=== PATIENT | male | born 1980 | race Caucasian/White ===

== ENCOUNTER 2017-01-08 02:20 | Emergency (ER) | payer OTHER ==
[~2017-01-08] VITALS: Ht 185.4 cm; Wt 144.7 kg
[~2017-01-08 02:20] MED LIST: MELO15TA4 PO; SERT-234 PO
[2017-01-08 02:24] VITALS: TEMP 36.8; Ht 185.4 cm; Wt 144.7 kg
[2017-01-08] MEDS ORDERED: SUMA100T16 PO (02:52)
[2017-01-08] MEDS ORDERED: NAPR-1169 PO (02:52)
[2017-01-08] MEDS ORDERED: RANI150T3 PO (02:52)
[2017-01-08 03:03] LABS: BASO % 0.4 %; BASO ABS # 0.06 K/uL (0-0.2); COMPLETE YES; EOS % 1.5 %; IG% 0.5 %; LYMPH % 32.2 %; LYMPH ABS # 4.41 K/uL (1.2-3.4); MEAN CELL VOLUME 90.3 fL (80-100); MEAN CORPUSCULAR HEMOGLOBIN 30.5 pg (25-34); MEAN CORPUSCULAR HGB CONC 33.7 g/dl (32-36); MEAN PLATELET VOLUME 9.8 fL (7.4-10.4); MONO % 5.7 %; NEUT % 59.7 %; PLATELET COUNT 271 K/uL (130-400); RED BLOOD COUNT 4.76 M/uL (4.7-6.1); WHITE BLOOD COUNT 13.69 K/uL (4.8-10.8)
[2017-01-08 03:14] LABS: POINT OF CARE TROPONIN I < 0.030 ng/ml (0-0.045)
[2017-01-08 03:20] LABS: ALT/SGPT 64 U/L (12-78); AST/SGOT 39 U/L (15-37); BLOOD UREA NITROGEN 19 mg/dl (7-18); BUN/CREATININE RATIO 19.7 (10-20); CARBON DIOXIDE 28 mmol/L (21-32); CHLORIDE 106 mmol/L (98-107); CREATININE 0.96 mg/dl (0.60-1.40); GLUCOSE 102 mg/dl (70-99); POTASSIUM 3.7 mmol/L (3.5-5.1); SODIUM 140 mmol/L (136-145)
[2017-01-08 03:31] LABS: ALKALINE PHOSPHATASE 138 U/L (45-117)
--- NOTE | 2017-01-08 05:06 | EMERGENCY ROOM VISIT NOTE ---
History First contact with patient: 02:27 Chief Complaint: NECK PAIN Stated Complaint: NECK AND ARM PAIN-LEFT ARM,CHEST PAIN History of Present Illness The patient is a 36 year old male who presents to the Emergency Room with complaints of a few episodes of brief chest pain for the past 2 days that last 5 -20 seconds in duration. Patient states the pain will start midsternal go to his jaw. He is occasionally short of breath. He has had increased leg swelling. He is a trolley coach driver. There is a family history of heart disease with his mother having heart disease in her 40s. He has an echo yearly as there is a family history of heart tumors. Last ears echo was normal per patient. He follows with Dr. Whittaker. No stress test. Patient used to smoke and now vaporize's. Occasional alcohol use. He does have high cholesterol. No diabetes or hypertension. He does not exercise. He is a 25 pound weight gain recently. No exertional chest pain. Patient denies abdominal pain, diaphoresis, vomiting, diarrhea, back pain, history of blood clots. There is a family history of blood clots. Review of Systems See HPI for pertinent positives & negatives. A total of 10 systems reviewed and were otherwise negative. Past Medical/Surgical History Medical Problems: (1) Back pain, chronic (2) Diaphragmatic Hernia (3) Diverticulosis Colon (W/O Ment Of Hemorrhage) (4) Esophageal Reflux (5) Tobacco Use Disorder Surgical Problems: (1) No significant past surgical history Family History Diabetes mellitus FHx: heart disease Social History Smoking Status: Former Smoker Smokeless Tobacco Use: Yes Alcohol Use: none Marital Status: Housing Status: lives with family Occupation Status: employed Current/Historical Medications Scheduled Meloxicam (Mobic), 15 MG PO DAILY Ranitidine Hcl (Zantac), 150 MG PO BID Sertraline (Zoloft), 100 MG PO DAILY Scheduled PRN Naproxen (Naprosyn), 500 MG PO BID PRN for Pain Sumatriptan Succinate (Imitrex), 100 MG PO UD PRN for Migraine Physical Exam Vital Signs Date Time Temp Pulse Resp B/P (MAP) Pulse Ox O2 Delivery O2 Flow Rate FiO2 01/08/17 04:03 67 21 135/76 96 Room Air 01/08/17 02:38 70 01/08/17 02:24 36.8 80 16 162/100 97 Room Air Physical Exam VITALS: Vitals are noted on the nurse's note and reviewed by myself. Vital signs hypertensive GENERAL: Pleasant male morbidly obese, in no acute distress, nondiaphoretic, well-developed well-nourished. SKIN: The skin was without rashes, erythema, edema, or bruising. There is no tenting of the skin. Capillary reflex less than 2 seconds. HEAD: Normocephalic atraumatic. EARS: External auditory canals clear, tympanic membranes pearly morocho without erythema or effusion bilaterally. EYES: Pupils equal round and reactive to light and accommodation. Conjunctivae without injection, sclerae without icterus. Extraocular movements intact. NOSE: Patent, turbinates without inflammation or discharge. MOUTH: Mucous membranes moist. Pharynx without erythema or exudate. Uvula midline. Airway patent. Tongue does not deviate. NECK: Supple without nuchal rigidity. No lymphadenopathy. No thyromegaly. Cervical spine is nontender. No JVD. HEART: Regular rate and rhythm without murmurs gallops or rubs. LUNGS: Clear to auscultation bilaterally without wheezes, rales or rhonchi. No dullness to percussion. No retractions or accessory muscle use. ABDOMEN: Positive bowel sounds x 4. Normal tympanic percussion. Soft, protuberant, obese, nontender, without masses or organomegaly. Medina sign negative. No guarding or rebound tenderness. MUSCULOSKELETAL: No muscle atrophy, erythema, noted. + 1 Pitting edema up to the mid tib-fib bilaterally NEURO: Patient was alert and oriented to person place and time. Normal sensation to light and sharp touch. No focal neurological deficits. Medical Decision & Procedures Laboratory Results 01/08/17 02:40 Red Blood Count 4.76, Mean Corpuscular Volume 90.3, Mean Corpuscular Hemoglobin 30.5, Mean Corpuscular Hemoglobin Concent 33.7, Mean Platelet Volume 9.8, Neutrophils (%) (Auto) 59.7, Lymphocytes (%) (Auto) 32.2, Monocytes (%) (Auto) 5.7, Eosinophils (%) (Auto) 1.5, Basophils (%) (Auto) 0.4, Neutrophils # (Auto) 8.17, Lymphocytes # (Auto) 4.41, Monocytes # (Auto) 0.78, Eosinophils # (Auto) 0.20, Basophils # (Auto) 0.06 01/08/17 02:40 Test 01/08/17 02:40 01/08/17 02:54 01/08/17 04:47 White Blood Count 13.69 K/uL (4.8-10.8) Red Blood Count 4.76 M/uL (4.7-6.1) Hemoglobin 14.5 g/dL (14.0-18.0) Hematocrit 43.0 % (42-52) Mean Corpuscular Volume 90.3 fL (80-100) Mean Corpuscular Hemoglobin 30.5 pg (25-34) Mean Corpuscular Hemoglobin Concent 33.7 g/dl (32-36) Platelet Count 271 K/uL (130-400) Mean Platelet Volume 9.8 fL (7.4-10.4) Neutrophils (%) (Auto) 59.7 % Lymphocytes (%) (Auto) 32.2 % Monocytes (%) (Auto) 5.7 % Eosinophils (%) (Auto) 1.5 % Basophils (%) (Auto) 0.4 % Neutrophils # (Auto) 8.17 K/uL (1.4-6.5) Lymphocytes # (Auto) 4.41 K/uL (1.2-3.4) Monocytes # (Auto) 0.78 K/uL (0.11-0.59) Eosinophils # (Auto) 0.20 K/uL (0-0.5) Basophils # (Auto) 0.06 K/uL (0-0.2) RDW Standard Deviation 43.4 fL (36.4-46.3) RDW Coefficient of Variation 13.2 % (11.5-14.5) Immature Granulocyte % (Auto) 0.5 % Immature Granulocyte # (Auto) 0.07 K/uL (0.00-0.02) Anion Gap 6.0 mmol/L (3-11) Est Creatinine Clear Calc Drug Dose 160.7 ml/min Estimated GFR () 118.2 Estimated GFR (Non- 102.0 BUN/Creatinine Ratio 19.7 (10-20) Calcium Level 9.0 mg/dl (8.5-10.1) Magnesium Level 2.0 mg/dl (1.8-2.4) Total Bilirubin 0.3 mg/dl (0.2-1) Direct Bilirubin < 0.1 mg/dl (0-0.2) Aspartate Amino Transf (AST/SGOT) 39 U/L (15-37) Alanine Aminotransferase (ALT/SGPT) 64 U/L (12-78) Alkaline Phosphatase 138 U/L (45-117) Troponin I < 0.015 ng/ml (0-0.045) Total Protein 7.4 gm/dl (6.4-8.2) Albumin 3.2 gm/dl (3.4-5.0) Lipase 127 U/L (73-393) Thyroid Stimulating Hormone (TSH) 2.070 uIu/ml (0.300-4.500) Bedside D-Dimer 361 ng/mlFEU (0-450) Bedside Troponin I < 0.030 ng/ml (0-0.045) ED Course Prior records/ancillary studies reviewed. Triage Nursing notes reviewed. Additional history obtained from family. The patient's history was concerning for chest pain. Differential diagnosis: Etiologies such as cardiac ischemia, aortic dissection, pulmonary embolism, pneumonia, pneumothorax, musculoskeletal, infections, pericarditis, myocarditis , esophageal rupture, gastrointestinal, as well as others were entertained. Physical examination: As above. ER treatment provided: Patient was observed On reassessment the patient felt better. Diagnostic interpretation by me: The electrocardiogram was negative for pathologic change. Normal sinus, normal intervals, no acute ST-T wave changes. Impression normal sinus rhythm interpreted by myself The labs revealed negative d-dimer, negative troponin 2 was 2 hours apart Imaging studies: Chest x-ray with no acute consolidation, pneumothorax or free air per my interpretation neg US for DVT Exam and history seem consistent with chest pain that was brief in duration lasting 5-20 seconds for the past 2 days. This is less likely cardiac in etiology. Patient had unremarkable workup as above. Normal EKG. 2 troponins that were negative that were 2 hours apart. Negative d-dimer. He Is advised to follow-up this week with his family care doctor or here in the ER sooner for Chest Pain, Difficulty Breathing, Worsening Signs or Symptoms or As Needed.By the evaluation outlined above emergent etiologies such as cardiac ischemia, aortic dissection, pulmonary embolism, pneumonia, pneumothorax, infections, pericarditis, myocarditis, gastrointestinal, as well as others were deemed relatively unlikely. The pt informed about the findings as listed above. All questions were answered and pleased with the treatment. Return instructions were outlined and the patient was discharged in stable condition. Referral: The patient was referred back to primary care physician for follow-up in 2 to 3 days for a recheck of the current condition. Case reviewed by attending. Medical Decision As above Blood Pressure Screening Patient's blood pressure: Elevated blood pressure Blood pressure disposition: Elevated BP felt to be situational, Referred to PCP Impression Primary Impression: Chest pain Departure Information Dispostion Home / Self-Care Condition GOOD Referrals Dangelo Burton M.D. (PCP) Patient Instructions My [facility] Additional Instructions Ibuprofen(Motrin, Advil) may be used for fever or pain. Use 600mg every six hours as needed. Take with food. Avoid using more than 2400mg in a 24 hour period. Do not use 2400mg per day for more than three consecutive days without physician direction. Prolonged inappropriate use can lead to stomach upset or ulcers. (AND/OR) Acetaminophen(Tylenol) may be used for fever or pain. Use 1000mg every six hours as needed. Avoid using more than 3000mg in a 24 hour period. Rest and drink plenty of fluids as tolerated. Continue current medications. Avoid strenuous activities and anything that worsens your pain. Resume normal activities once your symptoms resolve. Return to the ER immediately for worsening or persistent chest pain, abdominal pain, vomiting, fevers, chest pains, difficulty breathing, worsening of your condition, or as needed. Follow up with your primary physician in 2-3 days for a recheck of your current condition. Problem Qualifiers Primary Impression: Chest pain Chest pain type: precordial pain Qualified Codes: R07.2 - Precordial pain
[2017-01-08 05:21] VITALS: BP 145/80; PULSE 82; O2SAT 95
--- NOTE | 2017-01-08 06:35 | DIAGNOSTIC IMAGING REPORT ---
VENOUS DOPPLER LWR EXT BILAT HISTORY: Pain. Edema. leg swelling COMPARISON STUDY: None. FINDINGS: There is normal compressibility, flow, and augmentation within the bilateral lower extremity deep venous systems. IMPRESSION: No DVT within the right or left lower extremity. The above report was generated using voice recognition software. It may contain grammatical, syntax or spelling errors. Electronically signed by: Bruce Mcdonald M.D. 01/08/2017 6:34 AM Dictated Date/Time: 01/08/2017 6:34 AM
--- NOTE | 2017-01-08 07:13 | DIAGNOSTIC IMAGING REPORT ---
SINGLE VIEW CHEST CLINICAL HISTORY: Atypical chest pain. FINDINGS: 2 AP, portable, upright chest radiographs are compared to study dated 10/06/2008. The examination is degraded by portable technique, large body habitus, and patient rotation. The cardiomediastinal silhouette is unremarkable. The lungs and pleural spaces are clear. No pneumothorax is seen. The bony thorax is grossly intact. IMPRESSION: No active disease in the chest. Electronically signed by: Juan Diego Desouza M.D. 01/08/2017 7:12 AM Dictated Date/Time: 01/08/2017 7:11 AM
== END 2017-01-08 05:22 | disposition home or self-care (01) ==
LOC: C.EDB 02:23 → C.EDA 05:22
DX: R07.2 Precordial pain (principal); E78.00 Pure hypercholesterolemia, unspecified; M54.9 Dorsalgia, unspecified; G89.29 Other chronic pain; K21.9 Gastro-esophageal reflux disease without esophagitis; Z83.3 Family history of diabetes mellitus; Z79.899 Other long term (current) drug therapy; I10 Essential (primary) hypertension; E66.01 Morbid (severe) obesity due to excess calories; Z68.41 Body mass index [BMI] 40.0-44.9, adult; Z87.891 Personal history of nicotine dependence

== ENCOUNTER 2017-10-24 21:27 | Emergency (ER) | payer SELFPAY ==
[~2017-10-24] VITALS: Ht 185.4 cm; Wt 179.8 kg
[~2017-10-24 21:27] MED LIST changes: +MELO-84 PO; -MELO15TA4 PO; +NAPR-1169 PO; +RANI150T3 PO; +SUMA100T16 PO
[2017-10-24 21:42] VITALS: TEMP 36.7; Ht 185.4 cm; Wt 179.8 kg
[2017-10-24] MEDS ORDERED: MULTTAB58 PO (21:50)
--- NOTE | 2017-10-24 21:59 | EMERGENCY ROOM VISIT NOTE ---
History First contact with patient: 21:46 Chief Complaint: FOOT PAIN Stated Complaint: RT FOOT PAIN History of Present Illness The patient is a 37 year old male who presents to the Emergency Room with complaints of right foot pain. The patient reports that he kicked a door yesterday morning and has had increasing pain since then. He states the pain is sharp and rates it an 8/10. It is worse with walking on the foot or to palpation of the area. He denies any numbness or weakness. He denies any previous injuries to the foot. He has iced the foot briefly and elevated the foot without improvement. He denies any other injuries. Review of Systems A complete 6 point review of systems was reviewed with the patient with pertinent positives and negatives as per history of present illness. All else were negative. Past Medical/Surgical History Medical Problems: (1) Back pain, chronic (2) Diaphragmatic Hernia (3) Diverticulosis Colon (W/O Ment Of Hemorrhage) (4) Esophageal Reflux (5) Tobacco Use Disorder Surgical Problems: (1) No significant past surgical history Family History Diabetes mellitus FHx: heart disease Social History Smoking Status: Current Every Day Smoker Alcohol Use: none Marital Status: Housing Status: lives with family Occupation Status: employed Current/Historical Medications Scheduled Multiple Vitamin (Multivitamin), 1 TAB PO DAILY Ranitidine Hcl (Zantac), 150 MG PO BID Sertraline (Zoloft), 100 MG PO DAILY Scheduled PRN Naproxen (Naprosyn), 500 MG PO BID PRN for Pain Sumatriptan Succinate (Imitrex), 100 MG PO UD PRN for Migraine Physical Exam Vital Signs Date Time Temp Pulse Resp B/P (MAP) Pulse Ox O2 Delivery O2 Flow Rate FiO2 10/24/17 23:09 90 18 150/90 96 10/24/17 21:42 36.7 91 18 148/88 96 Room Air Physical Exam VITALS: Vitals are noted on the nurse's note and reviewed by myself. GENERAL: This is a 37-year-old male, in no acute distress, nondiaphoretic, well- developed well-nourished. SKIN: No lacerations or abrasions noted. MUSCULOSKELETAL: There is mild ecchymosis to the dorsal aspect of the distal right foot. There is mild tenderness to palpation. Full range of motion of all toes and ankle. Dorsalis pedis pulse 2+. NEURO: Patient was alert and oriented to person place and time. Distal sensation intact. Medical Decision & Procedures ER Provider Diagnostic Interpretation: RIGHT FOOT 3 VIEWS HISTORY: right foot injury COMPARISON: None. FINDINGS: There is no fracture or dislocation. Dorsal soft tissue swelling within the forefoot. Plantar and posterior calcaneal spurs. The Lisfranc joint appears well aligned. No radiopaque foreign bodies. IMPRESSION: No fractures. Medical Decision Differential diagnosis includes fracture, sprain, contusion, dislocation, among others. The patient was evaluated as above. X-ray of the right foot was obtained and read by radiology with no acute findings. Patient was placed in a postoperative shoe and conservative measures were discussed with the patient. He was advised to ice the foot and elevate the foot to help reduce swelling. I advised follow-up with his PCP/orthopedics as needed. He verbalized understanding of my assessment and treatment plan and was discharged home in good condition. Medication Reconcilliation Current Medication List: was personally reviewed by me Blood Pressure Screening Patient's blood pressure: Elevated blood pressure Blood pressure disposition: Elevated BP felt to be situational Impression Primary Impression: Contusion of foot Departure Information Dispostion Home / Self-Care Condition GOOD Referrals Dangelo Burton M.D. (PCP) Patient Instructions My [facility] Additional Instructions You have been treated in the Emergency Department for a foot injury. For pain control, you can use the following [id number] medicines (if >12 yo): - Regular strength (325mg/tab) Tylenol (acetaminophen) 2 tabs every 4-6 hours as needed. Do not exceed 12 tablets in a 24 hour period. Avoid taking more than 4 grams (4000 mg) of Tylenol per day. This includes any other sources of acetaminophen you may take on a regular basis. - Regular strength (200 mg/tab) Advil (ibuprofen) 1-2 tabs every 4-6 hours as needed. Do not exceed a dose of 3200 mg per day. If this is a recent injury (<24 hrs), ice can be applied to the area of pain for the first 3 days to help decrease pain and inflammation. Where the postoperative shoe for the next 5-6 days, or as needed for pain/ difficulty walking. If you do not notice improvement or still have difficulty walking in 1 week, you should follow-up with your primary care provider or orthopedics. Return to the Emergency Department if your current symptoms worsen despite treatment course outlined above, or if you develop any of the following symptoms : intractable pain despite aforementioned treatment course or new onset of numbness or tingling of the foot. Problem Qualifiers Primary Impression: Contusion of foot Encounter type: initial encounter Laterality: right Qualified Codes: S90.31XA - Contusion of right foot, initial encounter
--- NOTE | 2017-10-24 22:13 | DIAGNOSTIC IMAGING REPORT ---
RIGHT FOOT 3 VIEWS HISTORY: right foot injury COMPARISON: None. FINDINGS: There is no fracture or dislocation. Dorsal soft tissue swelling within the forefoot. Plantar and posterior calcaneal spurs. The Lisfranc joint appears well aligned. No radiopaque foreign bodies. IMPRESSION: No fractures. Electronically signed by: Pancho Rodriguez M.D. 10/24/2017 10:12 PM Dictated Date/Time: 10/24/2017 10:10 PM
[2017-10-24 23:09] VITALS: BP 150/90; PULSE 90; O2SAT 96
== END 2017-10-24 23:10 | disposition home or self-care (01) ==
LOC: C.EDB 21:29 → C.EDC 23:10
DX: S90.31XA Contusion of right foot, initial encounter (principal); X58.XXXA Exposure to other specified factors, initial encounter; K57.90 Diverticulosis of intestine, part unspecified, without perforation or abscess without bleeding; K21.9 Gastro-esophageal reflux disease without esophagitis; F17.200 Nicotine dependence, unspecified, uncomplicated